=== PATIENT | male | born 1985 | race Caucasian/White ===

== ENCOUNTER 2018-08-30 09:35 | Emergency (ER) | payer OTHER ==
[2018-08-30 09:40] VITALS: RESP 16; TEMP 98.1
--- NOTE | 2018-08-30 10:44 | XR ---
EXAMINATION TYPE: XR chest 2V DATE OF EXAM: 08/30/2018 COMPARISON: NONE TECHNIQUE: PA and lateral views submitted. HISTORY: Chest pain FINDINGS: Lungs are clear. No pleural effusion. Heart size normal. There is a linear density along the lower ma rgin of the right chest which is felt to BE most likely artifactual. Repeat frontal view recommended for tiny pneumothorax. IMPRESSION: 1. Probable artifact involving the right costophrenic angle. Repeat frontal view recommended to exclu de a tiny pneumothorax.
[2018-08-30 10:49] LABS: Basophils % (A) 0 %; Eosinophils # (A) 0.2 k/uL (0-0.7); Eosinophils % (A) 4 %; HCT 44.1 % (39.0-53.0); HGB 14.9 gm/dL (13.0-17.5); Lymphocytes # (A) 1.1 k/uL (1.0-4.8); Lymphocytes % (A) 23 %; MCH 30.6 pg (25.0-35.0); MCHC 33.8 g/dL (31.0-37.0); MCV 90.6 fL (80.0-100.0); Mean Platelet Volume 6.8; Monocytes # (A) 0.5 k/uL (0-1.0); Monocytes % (A) 9 %; Neutrophils % (A) 62 %; Platelet Count 173 k/uL (150-450); RBC 4.87 m/uL (4.30-5.90); WBC 4.9 k/uL (3.8-10.6)
[2018-08-30 10:57] LABS: INR 1.1 (<1.2); Partial Thromboplastin Time 23.8 sec (22.0-30.0); Prothrombin Time 10.6 sec (9.0-12.0)
[2018-08-30 11:00] LABS: ALT 32 U/L (21-72); AST 28 U/L (17-59); Albumin 4.2 g/dL (3.5-5.0); Alkaline Phosphatase 50 U/L (38-126); Anion Gap 8 mmol/L; Blood Urea Nitrogen 13 mg/dL (9-20); Calcium 9.6 mg/dL (8.4-10.2); Carbon Dioxide 28 mmol/L (22-30); Chloride 104 mmol/L (98-107); Glucose 110 mg/dL (74-99); Potassium 4.9 mmol/L (3.5-5.1); Sodium 140 mmol/L (137-145); Total Bilirubin 0.8 mg/dL (0.2-1.3); Total Protein 7.1 g/dL (6.3-8.2)
--- NOTE | 2018-08-30 11:07 | XR ---
EXAMINATION TYPE: XR chest 1V DATE OF EXAM: 08/30/2018 COMPARISON: 08/30/2018 HISTORY: Abnormal x-ray TECHNIQUE: Single frontal view of the chest is obtained. FINDINGS: There is no focal air space opacity, pleural effusion, or pneumothorax seen. The cardiac silhouette size is within normal limits. The osseous structures are intact. IMPRESSION: No acute process.
--- NOTE | 2018-08-30 11:39 | ED ---
Chest Pain HPI - General Chief Complaint: Chest Pain Stated Complaint: chest pain Source: patient Mode of arrival: wheelchair Limitations: no limitations - History of Present Illness Initial Comments: 32-year-old male with a past medical history presenting today for chief complaint of left-sided chest cramping. Patient states that yesterday while he was sitting watching the lines came he spirits left-sided chest cramping with mild left shoulder discomfort. He felt those in his rib cage, the pain was 4/ 10 dull cramping sensation. The pain diminished to 1/10 dull ache. Patient denies IVDU, fever, chills, shortness of breath, dyspnea on exertion, back pain , dizziness, lightheadedness, syncope, palpitations, jaw pain, or seizures of the arms or any other associated symptoms. Patient denies family history of coronary artery disease or sudden . She denies chest trauma. 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 Pt states he has low resting HR. Pt did state he had a similar episode 3 weeks ago, which went away. Remainder of ROS (-) patient denies any recent fever, chills, shortness of breath, back pain, patient denies calf pain, hemoptysis, hx of blood clots/PE, cough abdominal pain, nausea or vomiting, numbness or tingling, dysuria or hematuria, constipation or diarrhea, headaches or visual changes, or any other complaints. - Related Data Home Medications Medication Instructions Recorded Confirmed Albuterol Inhaler [Ventolin Hfa 2 puff INHALATION RT-QID 08/30/18 08/30/18 Inhaler] L.acidoph,Paracasei, B.lactis 1 cap PO DAILY 08/30/18 08/30/18 [Probiotic] Allergies Allergy/AdvReac Type Severity Reaction Status Date / Time acetaminophen AdvReac Vomiting Verified 08/30/18 09:55 [From Tylenol-Codeine] codeine AdvReac Vomiting Verified 08/30/18 09:55 [From Tylenol-Codeine] Review of Systems ROS Statement: Those systems with pertinent positive or pertinent negative responses have been documented in the HPI. ROS Other: All systems not noted in ROS Statement are negative. Constitutional: Denies: fever, chills, night sweats Eyes: Denies: vision change ENT: Denies: hearing loss Respiratory: Denies: cough, dyspnea, wheezes, hemoptysis, stridor Cardiovascular: Denies: chest pain, palpitations, dyspnea on exertion, orthopnea , edema Gastrointestinal: Denies: abdominal pain, nausea, vomiting, diarrhea, constipation, hematemesis Genitourinary: Denies: urgency, dysuria, frequency, hematuria Musculoskeletal: Denies: back pain Skin: Denies: rash, lesions Neurological: Denies: headache, weakness, numbness, paresthesias, confusion, abnormal gait EKG Findings - EKG Comments: EKG Findings:: Ventricular rate 40 bpm, DC interval 108 ms QRS 92 ms, QT/QTC 424 /378 ms this appears to be sinus bradycardia. No ST elevation or T-wave inversion concerning for acute cardiac syndrome at this time. Reviewed by myself and Dr. Molina. Past Medical History Past Medical History: No Reported History History of Any Multi-Drug Resistant Organisms: None Reported Past Surgical History: No Surgical Hx Reported Past Psychological History: No Psychological Hx Reported Smoking Status: Never smoker Past Alcohol Use History: Occasional Past Drug Use History: None Reported General Exam - General Exam Comments Initial Comments: General: The patient is awake and alert, in no distress, and does not appear acutely ill. Eye: Pupils are equal, round and reactive to light, extra-ocular movements are intact. No nystagmus. There is normal conjunctiva bilaterally. No signs of icterus. Ears, nose, mouth and throat: There are moist mucous membranes and no oral lesions. Neck: The neck is supple, there is no tenderness or JVD. Cardiovascular: There is a regular rate and rhythm. No murmur, rub or gallop is appreciated. Respiratory: Lungs are clear to auscultation, respirations are non-labored, breath sounds are equal. No wheezes, stridor, rales, or rhonchi. Gastrointestinal: Soft, non-distended, non-tender abdomen without masses or organomegaly noted. There is no rebound or guarding present. No CVA tenderness. Bowel sounds are unremarkable. Musculoskeletal: Normal ROM, no tenderness. Strength 5/5. Sensation intact. Radial pulses equal bilaterally 2+. Neurological: A&O x 3. CN II-XII intact, There are no obvious motor or sensory deficits. Coordination appears grossly intact. Speech is normal. Skin: Skin is warm and dry and no rashes or lesions are noted. Psychiatric: Cooperative, appropriate mood & affect, normal judgment. Limitations: no limitations Course Vital Signs 08/30/18 08/30/18 09:39 12:09 Temperature 98.1 F Pulse Rate 82 53 L Respiratory 16 16 Rate Blood Pressure 151/88 138/78 O2 Sat by Pulse 99 94 L Oximetry Chest Pain MDM - MDM Pt has no risk factors for ACS. EKG unremarkable. CXR WNL, no pneumothorax. Trops (-). Pt is afebrile, PERC (-). Pt appears well stating he does not currently having symptoms. HEART SCORE 1. Multiple re-evaluations, patient appears well sitting comfortably, inquiring about discharged because he has to work. At this time it is unclear the etiology of the CP, as it is atypical. At this time I feel pt is stable for d/c with primary care f/u for further cardiac evaluation. Pt agrees with plan, stating he is ready for discharge. Case discussed in detail with Dr. Molina who agreed with plan. Pt d/c in stable condition. Return parameters discussed in detail, patient verbalized understanding. Disposition Clinical Impression: Chest discomfort Disposition: HOME SELF-CARE Condition: Good Instructions: Chest Pain (ED) Additional Instructions: Please use medication as discussed. Please follow-up with family doctor in the next 2 days. Please return to emergency room if the symptoms increase or worsen or for any other concerns. Is patient prescribed a controlled substance at d/c from ED?: No Referrals: None,Stated [Primary Care Provider] - 1-2 days Time of Disposition: 11:39
[2018-08-30 11:40] LABS: Creatine Kinase 66 U/L (55-170)
[2018-08-30 11:52] LABS: Creatine Kinase MB 0.9 ng/mL (0.0-2.4); Troponin I <0.012 ng/mL (0.000-0.034)
[2018-08-30 12:10] VITALS: BP 138/78; PULSE 53
== END 2018-08-30 12:10 | disposition home or self-care (01) ==
LOC: EC 09:35
DX: R07.89 Other chest pain (principal); R29.898 Other symptoms and signs involving the musculoskeletal system; Z79.899 Other long term (current) drug therapy; Z88.5 Allergy status to narcotic agent; Z88.6 Allergy status to analgesic agent
CPT/HCPCS: 36415; 71045; 71046; 80053; 82550; 82553; 83735; 84484; 85025; 85610; 85730; 93005; 99285